=== PATIENT | male | born 1965 | race Two or more races ===

== ENCOUNTER → 2025-06-28 | Outpatient (CLI) | payer MEDICAID, SELFPAY ==
--- NOTE | 2025-06-28 11:00 | XR_ITS ---
Examination: CT chest, without intravenous contrast. Sagittal and coronal 2-D reconstructions. Exam date and time: June 28, 2025, 1037 hours, comparison May 28, 2023 INDICATIONS: Smoking history 45 years, negative dependence lung screening study low dose CTDI:vol (mGy) 11.5 DLP: (mGycm) 116 Technique: Multiple 3.0 mm axial sections of the chest to been obtained. Bone and lung density settings are obtained. Sagittal and coronal 2-D reconstructions have been obtained. Low dose protocols were performed. One or more of the following dose reduction techniques were used; automated exposure control, adjustment of the mA and/or KV according to patient size, use of iterative reconstruction technique. Findings: No thoracic aortic aneurysmal dilatation Pulmonary artery segments are not enlarged. No paratracheal tracheobronchial or bronchopulmonary adenopathy. No noncalcified pulmonary nodules. No pneumonia or pulmonary edema, no pleural disease. No visualized liver splenic lesion No gallstones noted No pancreatic mass Kidneys partially visualized no hydronephrosis Minimal nodular thickening left adrenal gland Moderate thoracic spondylosis IMPRESSION: No mediastinal lymphadenopathy No pneumonia, pulmonary edema, pleural disease, or pulmonary nodules
== END | disposition home or self-care (01) ==
PROVIDERS: Referring Provider Nurse Practitioner Family; Visit Provider Nurse Practitioner Family
DX: R91.1 Solitary pulmonary nodule (principal); F17.210 Nicotine dependence, cigarettes, uncomplicated
CPT/HCPCS: 71271